=== PATIENT | male | born 1940 | race Caucasian/White ===

== ENCOUNTER 2016-08-07 08:37 | Outpatient (CLI) | payer MEDICARE, BC ==
[~2016-08-07] VITALS: Ht 179.1 cm; Wt 79.5 kg
[~2016-08-07 08:37] MED LIST: ALTACE5 MG PO; IBUPROFEN800 MG PO; JAKAFI5 MG PO; LIPITOR20 MG PO
[2016-08-07 09:48] VITALS: BP 133/75; Ht 179.1 cm; Wt 79.5 kg
--- NOTE | 2016-08-07 11:05 | NUR ---
#20 GUAGE IV STARTED PER JOHNY DARLING RN. FIRST UNIT OF PRBC'S UP TO INFUSE WITH BLOOD TUBING AND NS. ALSO, THE BLOOD IS INFUSING THROUGH A WARMER SET AT 41C. RESPIRATIONS ARE QUIET AND EASY.
--- NOTE | 2016-08-07 12:30 | NUR ---
LUNCH PROVIDED. RESPIRATIONS QUIET AND EASY. NO SIGNS OF TRANSFUSION REACTIION. RATE INCREASED TO 175ML/HR VIA PUMP.
--- NOTE | 2016-08-07 13:30 | NUR ---
FIRST UNIT OF PRBC'S HAVE INFUSED. FLUSING LINE WITH NS.
--- NOTE | 2016-08-07 13:40 | NUR ---
SECOND UNIT OF PRBC'S UP WITH NS AND NEW BLOOD TUBING. NEW BLOOD WARMING TUBING WELL.
--- NOTE | 2016-08-07 14:10 | NUR ---
NO SIGNS OF TRANSFUSION REACTION. HAS BEEN SLEEPING OFF AND ON.
--- NOTE | 2016-08-07 15:10 | NUR ---
DENIES NEEDS, RESPIRATIONS QUIET AND EASY.
--- NOTE | 2016-08-07 15:40 | NUR ---
SECOND UNIT PRBC'S COMPLETED, LINE FLUSHED WITH NS. NO SIGNS OF TRANSFUSION REACTION. DISCHARGE INSTRUCTIONS AND COPY OF TRANSFUSION REACTION SYMPTOMS GIVEN, VOICED UNDERSTANDING.
--- NOTE | 2016-08-07 15:46 | NUR ---
UNABLE TO VOID AT THIS TIME. ENCOURAGED PO FLUIDS. COFFEE GIVEN PER REQUEST.
--- NOTE | 2016-08-07 16:40 | NUR ---
VITAL SIGNS STABLE, NO SIGNS OF TRANSFUSION REACTION. IV REMOVED WITH TIP INTACT. DISCHARGE INSTRUCTIONS GIVEN AND UNDERSTOOD. DISCHARGED HOME.
== END 2016-08-07 16:40 | disposition home or self-care (01) ==
LOC: D.OPS 08:37
DX: D64.9 Anemia, unspecified (principal); D47.4 Osteomyelofibrosis

== ENCOUNTER → 2016-08-12 16:46 | Outpatient (CLI) | payer MEDICARE, BC ==
[2016-08-07 09:48] VITALS: BMI 24.8
[~2016-08-12 16:46] MED LIST changes: +ASCORBIC ACID500 MG PO; +COLCRYS0.6 MG PO; +MULTIPLE VITAMI1 TA1 PO; +ZYLOPRIM300 MG PO
== END | disposition home or self-care (01) ==
LOC: D.LABREF 16:46
DX: D47.4 Osteomyelofibrosis (principal); D50.9 Iron deficiency anemia, unspecified

== ENCOUNTER 2016-08-14 08:38 | Outpatient (CLI) | payer MEDICARE, BC ==
[~2016-08-14] VITALS: Ht 179.1 cm; Wt 81.8 kg
[~2016-08-14 08:38] MED LIST changes: -ASCORBIC ACID500 MG PO; -COLCRYS0.6 MG PO; -MULTIPLE VITAMI1 TA1 PO; -ZYLOPRIM300 MG PO
[2016-08-14] MEDS ORDERED: ZYLOPRIM300 MG PO (09:30)
[2016-08-14 09:31] VITALS: BP 125/53; Ht 179.1 cm; Wt 81.8 kg
--- NOTE | 2016-08-14 09:35 | NUR ---
0920 EXPLAINED REASON OF SIDE EFFECTS OF BLOOD TRANSFUSION MEDS AND ASSESSMENT COMPLETED. ALREADY HAD BREAKFAST. MEDS GIVEN AND IV STARTED RT ARM 20 GAUGE 1 STICK GOOD BLOOD RETURN N/S AT KVO VIA BLOOD TUBING. CALLED FOR BLOOD WARMED AND IVAC AND TUBING.
--- NOTE | 2016-08-14 10:06 | NUR ---
1000 EXPLAINED ANS S/S OF BLOOD TRANSFUSION. V/S TAKEN. BLOOD CHECKED BY 2 NURSES AND BLOOD TUBING WITH BLOOD WARMER. IV RT ARM NO REDNESS OR SWELLING. BLOOD AY 75 CC/HR AND REPORT TO JOHNY DARLING R.N.
--- NOTE | 2016-08-14 10:46 | NUR ---
1015 BLOOD INFUSING VIA ALARIS PUMP, RATE INCREASED TO 175/CC/HR, BLOOD WARMER IN USE. AT SIDE. PT. DOSING.
--- NOTE | 2016-08-14 16:11 | NUR ---
1200 1ST UNIT BLOOD HAS COMPLETED WITHOUT PROBLEMS, PT HAS BEEN UP TO BR VOIDED, LUNCH HAS BEEN ORDERED. 1215 LASIX HAS BEEN GIVEN. 2ND UNIT CHECKED AT BEDSIDE BY THIS NURSE AND ANDREI FRYE RN INITIATED BY ALARIS PUMP AT 50/CC/HR AND BLOOD WARMER. AT 50/CC/HR. 1230 DENIES PROBLEMS RATE INCREASED TO 175/CC/HR PT. UP TO BR VOIDS, LUNCH SERVED. 1245 DENIES PROBLEMS RATE INCREASED TO 200/CC/HR. 1412 BLOOD HAS COMPLETED, LINE BEING FLUSHED WITH NS. PT HAS BEEN UP TO BR SEVERAL TIMES. DENIES PROBLEMS
--- NOTE | 2016-08-14 16:15 | NUR ---
1512 DENIES PROBLEMS. IV DC'D WITH CATH INTACT. RELEASED AMB.
== END 2016-08-14 15:20 | disposition home or self-care (01) ==
LOC: D.OPS 08:38
DX: D50.9 Iron deficiency anemia, unspecified (principal); D47.4 Osteomyelofibrosis

== ENCOUNTER 2016-08-27 11:33 | Outpatient (CLI) | payer MEDICARE, BC ==
[~2016-08-27 11:33] MED LIST changes: +ZYLOPRIM300 MG PO
[2016-08-27 13:45] VITALS: BP 135/80; Ht 179.1 cm
--- NOTE | 2016-08-27 13:52 | NUR ---
1340 BLOOD VERIFIED X 2 NURSES AND STARTED AT 75 CC PER HOUR VIA PUMP WITH BLOOD WARMER IN USE. PT WITH PERIPHERAL IV TO LEFT ARM. DENIES ANY C/O. AT BEDSIDE. DIET TRAY SERVED.
--- NOTE | 2016-08-27 16:15 | NUR ---
1355 REPORT FROM MIKAYLA BROOKS RN. PT. EATING LUNCH, BLOOD INFUSING BY ALARIS PUMP AT 75/CC/HR WITH BLOOD WARMER, PT. DENIES PROBLEMS, RATE INCREASED TO 125/CC/HR. AT BEDSIDE. 1410 RATE INCREASED TO 150/CC/HR 1425 RATE INCREASED TO 200/CC/HR
--- NOTE | 2016-08-27 16:17 | NUR ---
1540 PT UP TO BR, VOIDS QS. BLOOD NEAR COMPLETION 1545 BLOOD COMPLETED IN BAG, LINE BEING FLUSHED FROM TUBING. 1550 2ND UNIT CHECKED AT BEDSIDE BY THIS NURSE AND ADRIANA PETERSON RN, INITIATED BY ALARIS PUMP AT 75/CC/HR 1605 DENIES PROBLEMS, RATE INCREASED TO 175/CC/HR. PT. DOSING
--- NOTE | 2016-08-27 18:14 | NUR ---
1635 DENIES PROBLEMS WITH TRANSFUSION, REG DIET ORDERED, RATE INCREASED TO 200/CC/HR 1700 REG DIET SERVED 1730 BLOOD NEAR COMPLETION, ATE 90% SUPPER 1745 BLOOD COMPLETED LINE BEING FLUSHED WITH NS.
--- NOTE | 2016-08-27 19:16 | NUR ---
1830 LINE HAS CLEARED DC'D WITH CATH INTACT. 1845 DENIES PROBLEMS WITH BLOOD DC INSTS REVIEWED.
== END 2016-08-27 18:47 | disposition home or self-care (01) ==
LOC: D.OPS 11:33
DX: D64.9 Anemia, unspecified (principal); D47.4 Osteomyelofibrosis

== ENCOUNTER 2016-08-28 06:26 | Outpatient (CLI) | payer MEDICARE, BC ==
[~2016-08-28] VITALS: Ht 179.1 cm; Wt 81.8 kg
[2016-08-28 07:07] VITALS: BP 140/72; Ht 179.1 cm; Wt 81.8 kg
[2016-08-28 07:37] LABS: BASOPHILS 4.4 % (0.0-2.0); EOSINOPHILS 0.6 % (0-7); HEMATOCRIT 24.7 % (42.0-54.0); HEMOGLOBIN 8.2 g/dL (13.5-17.5); IMMATURE GRANULOCYTES 8.2 % (0-5); LYMPHOCYTES 21.9 % (15-50); MCH 27.9 pg (26.0-34.0); MCHC 33.2 g/dL (31.0-37.0); MONOCYTES 16.9 % (2-11); RBC 2.94 10x6/uL (4.20-6.10); RDW 16.4 % (11.5-14.5); WBC 3.2 10x3/uL (4.8-10.8)
[2016-08-28 07:38] LABS: ANION GAP 11.5 mmol/L (8-16); CALCIUM 8.9 mg/dL (8.5-10.1); CARBON DIOXIDE 28.1 mmol/L (21.0-32.0); CREATININE - SERUM 1.1 mg/dL (0.6-1.3); PLATELET COUNT 87 10x3/uL (130-400); POTASSIUM - SERUM 4.6 mmol/L (3.5-5.1)
[2016-08-28 07:57] LABS: APTT 33.6 SECONDS (22.8-39.4); INR 1.25 (0.85-1.17); PROTIME 15.6 SECONDS (11.6-15.0)
[2016-08-28 08:07] LABS: PLATELET ESTIMATE DECREASED
[2016-08-28 08:08] LABS: ANISOCYTOSIS OCC; POLYCHROMASIA OCC
--- NOTE | 2016-08-28 08:58 | NUR ---
0845-RECEIVED PT FROM IR AWAKE AND ALERT VSS. NO DISTRESS NOTED. MID HIP AREA WITH 4X4 AND TEGADERM INTACT NO EDEMA OR DRAINAGE NOTED AT THIS TIME. PT DENIES ANY PAIN, CALL LIGHT IN REACH WILL CONTINUE TO MONITOR 0850-REG TRAY GIVEN. PT DENIES ANY NEEDS AT THIS TIME 0900-REPORT GIVEN TO LONDON VELASQUEZ
== END 2016-08-28 10:45 | disposition home or self-care (01) ==
LOC: D.OPS 06:26 → D.SP 08:00 → D.OPS 10:45
PROVIDERS: Specialist
DX: D75.81 Myelofibrosis (principal)

== ENCOUNTER 2016-09-18 08:30 | Outpatient (CLI) | payer MEDICARE, BC ==
[~2016-09-18] VITALS: Ht 179.1 cm; Wt 77.3 kg
[2016-09-18] MEDS ORDERED: COLCRYS0.6 MG PO (08:59)
[2016-09-18] MEDS ORDERED: MULTIPLE VITAMI1 TA1 PO (09:00)
[2016-09-18] MEDS ORDERED: ASCORBIC ACID500 MG PO (09:00)
[2016-09-18 09:16] VITALS: BP 147/54; Ht 179.1 cm; Wt 77.3 kg
--- NOTE | 2016-09-18 09:25 | NUR ---
FIRST UNIT OF PRBC'S STARTED AT 125ML/HR VIA PUMP WITH NS AND BLOOD TUBING, ALSO RUNNING THROUGH A BLOOD WARMER THAT IS AT 41C AND TURNED ON. HAS BEEN PRETREATED WITH BENADRYL AND TYLENOL PER ORDER.
--- NOTE | 2016-09-18 11:15 | NUR ---
FIRST UNIT OF PRBC'S COMPLETED. LINE FLUSHED WITH NS.
--- NOTE | 2016-09-18 11:29 | NUR ---
SECOND UNIT PRBC'S UP WITH NS AND NEW BLOOD TUBING AND WARMING TUBING. RESPIRATIONS WITHOUT DISTRESS. CALLED FOR LUNCH TRAY PER PT REQUEST.
--- NOTE | 2016-09-18 12:00 | NUR ---
NO SIGNS OF TRANSFUSION REACTION AFTER FIRST 50ML HAVE INFUSED. IV RATE INCREASED TO 150ML/HR VIA PUMP.
--- NOTE | 2016-09-18 13:30 | NUR ---
PRBC'S COMPLETED. LINE FLUSHED WITH NS.
--- NOTE | 2016-09-18 14:00 | NUR ---
EYES CLOSED, RESPIRATIONS QUIET AND EASY.
--- NOTE | 2016-09-18 14:30 | NUR ---
DISCHARGE INSTRUCTIONS GIVEN, VOICED UNDERSTANDING. STATES "YOU DON'T KNOW HOW MANY TIMES I HAVE READ THIS TRANSFUSION SHEET." IV REMOVED INTACT. DISCHARGED HOME VIA WC.
== END 2016-09-18 14:30 ==
LOC: D.OPS 08:30
DX: D47.4 Osteomyelofibrosis (principal); D64.9 Anemia, unspecified

== ENCOUNTER 2016-10-09 09:34 | Outpatient (CLI) | payer MEDICARE, BC ==
[~2016-10-09 09:34] MED LIST changes: +ASCORBIC ACID500 MG PO; +COLCRYS0.6 MG PO; +MULTIPLE VITAMI1 TA1 PO
[2016-10-09 13:00] VITALS: BP 119/55; Ht 179.1 cm
--- NOTE | 2016-10-09 13:04 | NUR ---
1250 1ST UNIT CHECKED AT BEDSIDE BY THIS NURSE AND JOSE PENA RN, INITIATED BY ALARIS PUMP AT 50/CC/HR, BLOOD WARMER. PT. DOSING BECAUSE OF PRE OP OF BENADRYL. AT BEDSIDE.
--- NOTE | 2016-10-09 13:05 | NUR ---
1300 HAS LEFT TO GO SHOPPING. PT. DOSING.
--- NOTE | 2016-10-09 13:08 | NUR ---
1305 NO PROBLEMS NOTED WITH INFUSION RATE INCREASED TO 100/CC/HR.
--- NOTE | 2016-10-09 18:00 | NUR ---
1320 NO PROBLEMS NOTED, RATE INCREASED TO 150/CC/HR. 1335. IV SITE PATENT. RATE INCREASED TO 200/CC/HR PT UP TO BR VOIDS 1350 BLOOD GOING WELL. PT DOSING AT INTERVALS SANDWICH DIET ORDERED 1420 DIET SERVED BLOOD NEAR COMPLETION. 1430 BLOOD HAS COMPLETED, LINE BEING FLUSHED WITH NS. 1530 NO PROBLEMS VOICED WITH BLOOD RECEIPT. IV DC'D WITH CATH INTACT. UP TO BR VOIDS 1545 DC INSTS. GIVEN. RELEASED AMB PER PT REQUEST. STATES HIS WILL DRIVE HIM HOME.
== END 2016-10-09 15:45 ==
LOC: D.OPS 09:34
DX: D47.4 Osteomyelofibrosis (principal); D50.9 Iron deficiency anemia, unspecified

== ENCOUNTER 2016-11-06 09:37 | Outpatient (CLI) | payer MEDICARE, BC ==
[~2016-11-06] VITALS: Ht 179.1 cm; Wt 80.0 kg
[2016-11-06 11:32] VITALS: BP 140/70; Ht 179.1 cm; Wt 80.0 kg
--- NOTE | 2016-11-06 12:00 | NUR ---
1120 1ST UNIT BLOOD CHECKED AT BEDSIDE BY THIS NURSE AND ANGELINE PRESTON RN INITIATED BY ALARIS PUMP WITH BLOOD WARMER AT 50/CC/HR. AT BEDSIDE. 1135 DENIES PROBLEMS WITH BLOOD RATE INCREASED TO 125/CC/HR. 1150 BLOOD GOING WELL. DROWSY FROM BENADRYL. REG DIET LEFT AT BEDSIDE. RATE INCREASED TO 175/CC/HR. STILL AT BEDSIDE.
--- NOTE | 2016-11-06 14:12 | NUR ---
1205 BLOOD RATE INCREASED TO 175/CC/HR. DENIES PROBLEMS. EATING LUNCH
--- NOTE | 2016-11-06 14:13 | NUR ---
1235 DENIES PROBLEMS BLOOD INFUSING WELL. UP TO BR, VOIDS QS. 1305 BLOOD COMPLETED, LINE BEING FLUSHED WITH NS. 1405 DENIES PROBLEMS VS WNL. IV DC'D WITH CATH INTACT. DC INSTS REVIEWED. RELEASED AMB PER PT. CHOICE.
== END 2016-11-06 14:10 | disposition home or self-care (01) ==
LOC: D.OPS 09:37
DX: D47.4 Osteomyelofibrosis (principal)

== ENCOUNTER 2017-05-02 08:07 | Outpatient (CLI) | payer MEDICARE, BC ==
[2017-05-02 11:31] VITALS: BP 153/69; BMI 24.8
--- NOTE | 2017-05-02 13:35 | NUR ---
1125 BLOOD VITALS CHARTED ON TRANSFUSION CARD IN PT CHART.
--- NOTE | 2017-05-02 16:26 | NUR ---
1530 REPORT FROM SAUNDRA SHEPPARD. BLOOD COMPLETED, NO S/S OF BLOOD REACTIONS NOTED. RESP EVEN AND NONLABORED. IV DCD CATHETER INTACT.
--- NOTE | 2017-05-02 16:27 | NUR ---
1620 V/S TAKEN ATE ICE CREAM. NO S/S OF BLOOD REACTION NOTED.
--- NOTE | 2017-05-02 16:28 | NUR ---
4419 DISCHARGED TO HOME VIA W/C.
== END 2017-05-02 16:30 | disposition home or self-care (01) ==
LOC: D.OPS 08:07
DX: D69.3 Immune thrombocytopenic purpura (principal)

== ENCOUNTER → 2017-06-10 15:49 | Outpatient (CLI) | payer MEDICARE, BC | END | disposition home or self-care (01) | LOC: D.LABREF 15:49 | DX: M62.89 Other specified disorders of muscle (principal); D64.9 Anemia, unspecified ==

== ENCOUNTER 2017-06-11 05:42 | Outpatient (CLI) | payer MEDICARE, BC ==
[2017-06-11 07:23] LABS: BASOPHILS 1.3 % (0-2); EOSINOPHILS 0.3 % (0-7); HEMATOCRIT 24.4 % (42.0-54.0); HEMOGLOBIN 8.1 g/dL (13.5-17.5); IMMATURE GRANULOCYTES 7.3 % (0-5); LYMPHOCYTES 26.5 % (15-50); MCH 27.3 pg (26.0-34.0); MCHC 33.2 g/dL (31.0-37.0); MCV 82.2 fL (80.0-100.0); MONOCYTES 13.8 % (2-11); NEUTROPHILS 50.8 % (40-80); RBC 2.97 10x6/uL (4.20-6.10); RDW 18.2 % (11.5-14.5)
[2017-06-11 07:24] LABS: PLATELET COUNT 109 10x3/uL (130-400)
[2017-06-11 07:29] VITALS: BMI 24.8
[2017-06-11 07:42] LABS: CALC OSMOLALITY 281 mosm/kg (275-300); CALCIUM 8.5 mg/dL (8.5-10.1); CARBON DIOXIDE 24.7 mmol/L (21.0-32.0); CHLORIDE - SERUM 106 mmol/L (98-107); GLUCOSE 95 mg/dL (74-106); POTASSIUM - SERUM 4.4 mmol/L (3.5-5.1); SODIUM 140 mmol/L (136-145); UREA NITROGEN 21 mg/dL (7-18); eGFR NON AFRICAN AMERICAN 77 mL/min (90-120)
[2017-06-11 07:54] LABS: INR 1.17 (0.85-1.17); PROTIME 14.8 SECONDS (11.6-15.0)
--- NOTE | 2017-06-11 10:36 | NUR ---
0900-RECD FROM IR POST BONE MARROW BIOPSY. DOES NOT WANT TO GO THRU REGISTRATION TOMORROW FOR BLOOD TRANSFUSION. ARRANGEMENTS MADE FOR HIM. 914-REGULAR BREAKFAST TRAY SERVED. 929-NO NAUSEA. DRSG DRY AND INTACT. STATES I AM LEAVING AT 1000. DR CORONADO TOLD ME TO STAY ONE OR TWO HOURS AND I FEEL FINE AND I AM ONLY STAYING 1 HOUR. 1000-IV D/C. UP TO BATHROOM AND VOIDS FREELY. 1015-DRESSED AND DISCHARGE INSTRUCTIONS REVIEWED. 1020-D/C HOME VIA WHEELCHAIR WITH FREIGHT CALLER.
== END 2017-06-11 10:20 | disposition home or self-care (01) ==
LOC: D.OPS 05:42 → D.CT 08:00 → D.OPS 08:00 → D.SP 08:00 → D.OPS 10:20
PROVIDERS: Specialist
DX: D47.4 Osteomyelofibrosis (principal); E78.5 Hyperlipidemia, unspecified; I10 Essential (primary) hypertension; Z01.812 Encounter for preprocedural laboratory examination

== ENCOUNTER 2017-06-12 06:03 | Outpatient (CLI) | payer MEDICARE, BC ==
[2017-06-12 11:18] VITALS: BP 137/83; BMI 24.8
--- NOTE | 2017-06-12 16:46 | NUR ---
9114--PT REFUSED LASIX, DR BRADLEY CALLED AND REPORT GIVEN. DR BRADLEY INSTRUCTED TO TELL PT TO GO TO THE EMERGENCY DEPARTMENT IF HE HAD ANY TROUBLE BREATHING. HGRAVES RN
== END 2017-06-12 17:30 | disposition home or self-care (01) ==
LOC: D.OPS 06:03
DX: D64.9 Anemia, unspecified (principal); D47.4 Osteomyelofibrosis

== ENCOUNTER 2017-07-01 08:28 | Outpatient (CLI) | payer MEDICARE, BC ==
[2017-07-01 11:25] VITALS: BP 136/67; Ht 179.1 cm
--- NOTE | 2017-07-01 11:27 | NUR ---
1050 BLOOD CHECKED AT BEDSIDE BY THIS NURSE AND ADRIANA PETERSON RN, INITIATED BY BLOOD WARMER AT 50/CC/HR. PT STATES NEEDS BENADRYL AND TYLENOL BEFORE, ALWAYS GETS THIS, DR. RENEE PHONED AND ORDERED SAID MEDS, GIVEN PER OCT. 1110 DENIES PROBLEMS, RATE INCREASED TO 125/CC/HR. LUNCH SERVED 1125 BLOOD CONTS WITHOUT PROBLEMS RATE INCREASED TO 175/CC/HR.
--- NOTE | 2017-07-01 11:36 | NUR ---
1125 EATING, RATE INCREASED TO 225/CC/HR.
--- NOTE | 2017-07-01 15:03 | NUR ---
1225 BLOOD CHECKED AT BEDSIDE BY MYSELF AND OSEI Gleason RN
--- NOTE | 2017-07-01 15:04 | NUR ---
IV DC WITH CATHER TIP INTACT
== END 2017-07-01 15:20 | disposition home or self-care (01) ==
LOC: D.OPS 08:28
DX: C95.90 Leukemia, unspecified not having achieved remission (principal)

== ENCOUNTER 2017-07-23 11:29 | Outpatient (CLI) | payer MEDICARE, BC ==
--- NOTE | 2017-07-23 19:48 | NUR ---
1215 LUNCH SERVED. AWAITING ON BLOOD TO BE TYPED AND CROSSED. 1400 PREMEDS GIVEN IV STARTED RIGHT ARM. BLOOD CHECKED AT BEDSIDE BY THIS NURSE AND ANGELINE PRESTON RN INITIATED BY ALARIS PUMP AT 50./CC/HR BY ALARIS PUMP AND BLOOD WARMER.AT 41 DEGREES. PT VOIDS QS. PT SKIN TEMP WARM. STATES FEELS FINE. 1420 DENIES PROBLEMS WITH BLOOD RATE INCREASED TO 150/CC/HR. 1435 PT. NAPPING. 1450 PT AROUSED FROM NAP DENIES PROBLEMS 1505. DENIES PROBLEMS, RATE INCREASED TO 200/CC/HR UP TO BR VOIDS QS 1605 PT STATES HE DOES NOT WANT THE LASIX BETWEEN THE BLOOD, NEVER HAS PROBLEMS AND REFUSES THE LASIX. 1608 1ST UNIT COMPLETED, LINE BEING FLUSHED WITH NS. REPORT TO NEHA FERGUSON.
--- NOTE | 2017-07-23 19:55 | NUR ---
183 REPORT FROM NEHA FERGUSON RN, BLOOD COMPLETED LINE BEING FLUSHED WITH NS. PT. DENIES PROBLEMS. 1849 IV DC'D WITH CATH INTACT. 1899 POST V.S. WNL DC INSTS REVIEWED RELEASED AMB PER PT. CHOICE.
== END 2017-07-23 19:00 | disposition home or self-care (01) ==
LOC: D.OPS 11:29
DX: D64.9 Anemia, unspecified (principal)

== ENCOUNTER → 2017-07-24 08:29 | Outpatient (CLI) | payer MEDICARE, BC | END | disposition home or self-care (01) | LOC: D.US 08:29 | DX: D47.4 Osteomyelofibrosis (principal) ==

== ENCOUNTER 2017-08-06 09:34 | Outpatient (CLI) | payer MEDICARE, BC ==
[2017-08-06 11:22] VITALS: BP 147/52; Ht 179.1 cm
== END 2017-08-06 16:40 | disposition home or self-care (01) ==
LOC: D.OPS 09:34 → D.LAB 09:45 → D.OPS 10:00
DX: D47.4 Osteomyelofibrosis (principal); R53.83 Other fatigue

== ENCOUNTER 2017-08-28 08:56 | Outpatient (CLI) | payer MEDICARE, BC ==
[~2017-08-28] VITALS: Ht 179.1 cm; Wt 75.0 kg
[2017-08-28 11:02] VITALS: BP 138/61; Ht 179.1 cm; Wt 75.0 kg
== END 2017-08-28 17:00 | disposition home or self-care (01) ==
LOC: D.OPS 08:56
DX: D47.4 Osteomyelofibrosis (principal)

== ENCOUNTER 2017-09-11 08:55 | Outpatient (CLI) | payer MEDICARE, BC ==
[~2017-09-11] VITALS: Ht 177.8 cm; Wt 75.0 kg
[2017-09-11 09:29] VITALS: BP 131/70; Ht 177.8 cm; Wt 75.0 kg
== END 2017-09-11 16:35 | disposition home or self-care (01) ==
LOC: D.OPS 08:55
DX: D47.4 Osteomyelofibrosis (principal)

== ENCOUNTER 2017-10-02 10:07 | Outpatient (CLI) | payer MEDICARE, BC ==
[2017-09-11 09:29] VITALS: BMI 23.7
== END 2017-10-02 18:50 | disposition home or self-care (01) ==
LOC: D.OPS 10:07
DX: D47.4 Osteomyelofibrosis (principal)

== ENCOUNTER 2017-10-16 07:50 | Outpatient (CLI) | payer MEDICARE, BC ==
[~2017-10-16] VITALS: Ht 177.8 cm; Wt 79.5 kg
[2017-10-16 08:29] VITALS: BP 141/67; Ht 177.8 cm; Wt 79.5 kg
== END 2017-10-16 15:38 | disposition home or self-care (01) ==
LOC: D.OPS 07:50
DX: D47.4 Osteomyelofibrosis (principal); D64.9 Anemia, unspecified

== ENCOUNTER → 2017-10-29 12:42 | Outpatient (CLI) | payer MEDICARE, BC ==
[2017-10-16 08:29] VITALS: BMI 25.1
[~2017-10-29 12:42] MED LIST changes: +PREDNISONE10 MG PO; +TESTOSTERON200 MG/ML IM
== END | disposition home or self-care (01) ==
LOC: D.LABREF 12:42
DX: D47.4 Osteomyelofibrosis (principal)

== ENCOUNTER 2017-10-30 08:24 | Outpatient (CLI) | payer MEDICARE, BC ==
[~2017-10-30] VITALS: Ht 177.8 cm; Wt 76.4 kg
[~2017-10-30 08:24] MED LIST changes: -PREDNISONE10 MG PO; -TESTOSTERON200 MG/ML IM
[2017-10-30] MEDS ORDERED: TESTOSTERON200 MG/ML IM (09:16)
[2017-10-30 09:22] VITALS: BP 156/74; Ht 177.8 cm; Wt 76.4 kg
== END 2017-10-30 14:45 | disposition home or self-care (01) ==
LOC: D.OPS 08:24
DX: D47.4 Osteomyelofibrosis (principal)

== ENCOUNTER 2017-11-14 09:25 | Outpatient (CLI) | payer MEDICARE, BC ==
[2017-10-30 09:22] VITALS: BMI 24.1
[~2017-11-14 09:25] MED LIST changes: +TESTOSTERON200 MG/ML IM
== END 2017-11-14 15:45 | disposition home or self-care (01) ==
LOC: D.OPS 09:25
DX: D64.9 Anemia, unspecified (principal); D47.4 Osteomyelofibrosis

== ENCOUNTER 2017-12-05 08:59 | Outpatient (CLI) | payer MEDICARE, BC ==
[~2017-12-05] VITALS: Ht 177.8 cm; Wt 77.3 kg
[2017-12-05 13:55] VITALS: BP 156/58; Ht 177.8 cm; Wt 77.3 kg
== END 2017-12-05 16:20 ==
LOC: D.OPS 08:59
DX: D47.4 Osteomyelofibrosis (principal)

== ENCOUNTER 2017-12-19 08:34 | Outpatient (CLI) | payer MEDICARE, BC ==
[~2017-12-19] VITALS: Ht 177.8 cm; Wt 77.3 kg
[2017-12-19] MEDS ORDERED: PREDNISONE10 MG PO (09:37)
[2017-12-19 09:42] VITALS: BP 127/74; Ht 177.8 cm; Wt 77.3 kg
== END 2017-12-19 15:00 | disposition home or self-care (01) ==
LOC: D.OPS 08:34
DX: D47.4 Osteomyelofibrosis (principal); D64.9 Anemia, unspecified

== ENCOUNTER 2018-01-02 08:06 | Outpatient (CLI) | payer MEDICARE, BC ==
[~2018-01-02] VITALS: Ht 177.8 cm; Wt 78.2 kg
[~2018-01-02 08:06] MED LIST changes: +PREDNISONE10 MG PO
[2018-01-02 08:49] VITALS: BP 135/62; Ht 177.8 cm; Wt 78.2 kg
== END 2018-01-02 15:50 | disposition home or self-care (01) ==
LOC: D.OPS 08:06
DX: D64.9 Anemia, unspecified (principal); D47.4 Osteomyelofibrosis

== ENCOUNTER → 2018-01-15 13:42 | Outpatient (CLI) | payer MEDICARE, BC ==
[2018-01-02 08:49] VITALS: BMI 24.7
== END | disposition home or self-care (01) ==
LOC: D.LABREF 13:42
DX: D64.9 Anemia, unspecified (principal)

== ENCOUNTER → 2018-01-16 08:24 | Outpatient (CLI) | payer MEDICARE, BC ==
[~2018-01-16] VITALS: Ht 177.8 cm; Wt 72.7 kg
[2018-01-16 08:56] VITALS: Ht 177.8 cm; Wt 72.7 kg
== END | disposition home or self-care (01) ==
LOC: D.OPS 08:00
DX: D47.4 Osteomyelofibrosis (principal); D64.9 Anemia, unspecified; Z01.812 Encounter for preprocedural laboratory examination

== ENCOUNTER 2018-01-29 08:09 | Outpatient (CLI) | payer MEDICARE, BC ==
[~2018-01-29] VITALS: Ht 177.8 cm; Wt 73.6 kg
[2018-01-29 09:58] VITALS: BP 137/66; Ht 177.8 cm; Wt 73.6 kg
== END 2018-01-29 13:55 | disposition home or self-care (01) ==
LOC: D.OPS 08:09
DX: D64.9 Anemia, unspecified (principal); D47.4 Osteomyelofibrosis; Z01.812 Encounter for preprocedural laboratory examination

== ENCOUNTER 2018-02-12 08:18 | Outpatient (CLI) | payer MEDICARE, BC ==
[~2018-02-12] VITALS: Ht 177.8 cm; Wt 66.8 kg
[2018-02-12 09:28] VITALS: BP 156/67; Ht 177.8 cm; Wt 66.8 kg
== END 2018-02-12 13:05 | disposition home or self-care (01) ==
LOC: D.OPS 08:18
DX: D47.4 Osteomyelofibrosis (principal); D50.9 Iron deficiency anemia, unspecified; Z01.812 Encounter for preprocedural laboratory examination

== ENCOUNTER 2018-02-20 07:55 | Outpatient (CLI) | payer MEDICARE, BC ==
[~2018-02-20] VITALS: Ht 177.8 cm; Wt 78.2 kg
[2018-02-20 09:05] VITALS: BP 122/86; Ht 177.8 cm; Wt 78.2 kg
== END 2018-02-20 11:20 | disposition home or self-care (01) ==
LOC: D.OPS 07:55
DX: D50.9 Iron deficiency anemia, unspecified (principal); D47.4 Osteomyelofibrosis; Z01.812 Encounter for preprocedural laboratory examination

== ENCOUNTER 2018-02-25 08:00 | Inpatient (IN) | payer MEDICARE, BC ==
[2018-02-24 12:46] LABS: HEMATOCRIT 24.7 % (42.0-54.0); MCH 26.7 pg (26.0-34.0); MCHC 32.4 g/dL (31.0-37.0); MCV 82.3 fL (80.0-100.0); RDW 18.6 % (11.5-14.5); WBC 3.9 10x3/uL (4.8-10.8)
[2018-02-24 12:57] LABS: PLATELET COUNT 35 10x3/uL (130-400)
[2018-02-24 13:21] LABS: PLATELET ESTIMATE DECREASED
[2018-02-25] VITALS (23 sets, daily range): BP systolic 51–148; BP diastolic 29–77; Ht 177.8 cm; Wt 77.3 kg
[~2018-02-25] VITALS: Ht 177.8 cm; Wt 77.3 kg
--- NOTE | ~2018-02-25 | OP ---
PATIENT NAME: DENISE RICKETTS MEDICAL RECORD: [id number] :40 LOCATION:[facility] D.[id number] ADMISSION DATE:02/25/18 SURGEON: GENA ALTAMIRANO MD DATE OF OPERATION: 02/25/2018 PREOPERATIVE DIAGNOSES: 1. Myelodysplastic syndrome. 2. Thrombocytopenia. 3. 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 POSTOPERATIVE DIAGNOSES: 1. Myelodysplastic syndrome. 2. Thrombocytopenia. 3. 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 PROCEDURE: Open splenectomy. SURGEON: Gena Altamirano MD RAND BUTTER: Micheline Alejandra APRN STUDENT RAND BUTTER: suzy Paniaguaub technologist BLOOD LOSS: 250 cc. ANESTHESIA: General. COMPLICATIONS: None. DRAINS: Times 1 (19-Cymro round Aneudy drain). The risks, possible complications, and alternatives to the procedure were explained to the patient. He elected to proceed. The discussion specifically included, but was not limited to, bleeding, requiring an emergency reoperation; infection; postoperative hemorrhage, requiring packing of the abdomen; the possibility that the procedure would not improve his condition; the possibility of hypercoagulability; the possibility of postsplenectomy sepsis; the possibility of conversion to acute myelogenous leukemia. He elected to proceed. OPERATIVE COURSE: The patient was conveyed to the operating room electively on 02/25/2018. General anesthesia was induced by the anesthesia staff. The patient was placed in a semi-lateral decubitus position with the left side up. The left upper extremity was then draped across the patient's head. The patient was appropriately padded. This elevated the left costal margin. The patient's splenic tip could be felt at the level of the anterior-superior iliac spine. The patient's abdomen and left flank were sterilely prepped and draped. A left OPERATIVE REPORT [id number] DENISE RICKETTS subcostal incision was accomplished. I dissected down through the skin and subcutaneous tissue as well as fascia and muscle. The peritoneal cavity was entered sharply. The Bookwalter retractor was placed. I then began to dissect around the spleen. Over the capsule of the spleen, there were adhesions to the diaphragm as well as to the sidewall of the abdomen. These adhesions were taken down bluntly. The stomach was retracted for protection. I took down the short gastrics with the EnSeal device. I then took down the splenocolic ligament as well as the splenorenal ligament. I took these down with the open EnSeal device. I then did some dissection around the hilum of the spleen. I ensured that the pancreas was undamaged as I stapled across the hilum of the spleen with laparoscopic Endo-LATISHA staplers utilizing vascular loads. I was then able to divide the retroperitoneal attachments to the spleen and then removed the spleen in its entirety. Some minor bleeding was controlled with the EnSeal device as well as with some suture ligatures. I then examined the small bowel. There was one area of small bowel which was an abraded and this may be due to a retractor injury. Anyhow, the bowel appeared viable, but there was a seromyotomy and this was oversewn with multiple interrupted imbricating 3-0 Vicryl sutures. I ran small bowel twice from the ligament of Treitz to the ileocecal valve. I noted no other apparent injury. I then created a tongue of omentum by dividing the omentum on the right side off of the transverse colon with EnSeal device. I then continued this dissection of the omentum off of the transverse colon. This was later placed up in the left upper quadrant. I irrigated the left upper quadrant with normal saline and with hydrogen peroxide. I examined the stomach, which was undamaged. I examined the pancreas, which was undamaged. Gerota's fascia had not been entered. I then used Yfn as a topical hemostatic agent in the left upper quadrant. I then laid down some Nu-Knit over some of the raw surfaces and the retroperitoneum. A 19-Cymro round, fully fluted drain was then brought out through the left flank and placed up under the diaphragm. The drain was sutured to the skin with a 2-0 nylon. I then placed the omental tongue up in the left upper quadrant. I then reperitonealized with a running #1 Vicryl. We then closed the incision in layers with looped #1 PDS's as well as interrupted 3-0 Vicryls for the subcutaneous tissues and a running intracuticular 3-0 Vicryl for the skin. A sterile dressing was applied. The patient was then extubated and conveyed to the postanesthesia care unit, where he was in stable condition. TRANSINT:[id number] Voice Confirmation ID: [id number] DOCUMENT ID: [id number] OPERATIVE REPORT [id number] DENISE RICKETTS, GENA GONZALES at 1718 CC: KAVON RENEE and OLIVIA BRADLEY MD [id number] DICTATION DATE: 02/25/18 172 DATA INTEGRATION DEVELOPER: 02/25/18 1803 DIS IN 02/26/18 [place] [id number] [place] [id number]
[2018-02-25 12:25] LABS: HEMATOCRIT 17.4 % (42.0-54.0); HEMOGLOBIN 5.7 g/dL (13.5-17.5); MCH 27.8 pg (26.0-34.0); MCHC 32.8 g/dL (31.0-37.0); MCV 84.9 fL (80.0-100.0); MEAN PLATELET VOLUME 10.5 fL (7.4-10.4); PLATELET COUNT 97 10x3/uL (130-400); RBC 2.05 10x6/uL (4.20-6.10); RDW 17.8 % (11.5-14.5); WBC 7.3 10x3/uL (4.8-10.8)
[2018-02-25 12:31] LABS: ANISOCYTOSIS 1+; EOSINOPHILS 1 % (0-7); HYPOCHROMASIA OCC; LYMPHOCYTES 54 % (15-50); MONOCYTES 7 % (2-11); NEUTROPHILS 14 % (40-80); PLATELET ESTIMATE DECREASED; SMUDGE CELLS 1+
[2018-02-25 15:34] LABS: HEMATOCRIT 28.9 % (42.0-54.0); HEMOGLOBIN 9.2 g/dL (13.5-17.5); MCHC 31.8 g/dL (31.0-37.0); MCV 88.1 fL (80.0-100.0); PLATELET COUNT 75 10x3/uL (130-400); RBC 3.28 10x6/uL (4.20-6.10); RDW 15.6 % (11.5-14.5)
[2018-02-25 17:53] LABS: EOSINOPHILS 5 % (0-7); LYMPHOCYTES 76 % (15-50); MONOCYTES 1 % (2-11); NEUTROPHILS 14 % (40-80); PLATELET ESTIMATE DECREASED
[2018-02-25 17:54] LABS: HEMOGLOBIN 7.4 g/dL (13.5-17.5); MCH 27.8 pg (26.0-34.0); MCHC 31.1 g/dL (31.0-37.0); MCV 89.5 fL (80.0-100.0); PLATELET COUNT 91 10x3/uL (130-400); RBC 2.66 10x6/uL (4.20-6.10); WBC 31.7 10x3/uL (4.8-10.8)
[2018-02-25 17:55] LABS: HEMATOCRIT 23.8 % (42.0-54.0)
[2018-02-26 00:33] LABS: HEMATOCRIT 17.1 % (42.0-54.0); HEMOGLOBIN 5.8 g/dL (13.5-17.5); MCH 30.4 pg (26.0-34.0); MCHC 33.9 g/dL (31.0-37.0); MCV 89.5 fL (80.0-100.0); MEAN PLATELET VOLUME 11.8 fL (7.4-10.4); PLATELET COUNT 149 10x3/uL (130-400); RBC 1.91 10x6/uL (4.20-6.10); RDW 15.4 % (11.5-14.5); WBC 54.4 10x3/uL (4.8-10.8)
[2018-02-26 00:35] LABS: ALBUMIN 2.6 g/dL (3.4-5.0); ANION GAP 27.8 mmol/L (8-16); BILIRUBIN - TOTAL 0.7 mg/dL (0.2-1.3); CALCIUM 7.8 mg/dL (8.5-10.1); CREATININE - SERUM 2.4 mg/dL (0.6-1.3); PROTEIN - SERUM 4.7 g/dL (6.4-8.2)
[2018-02-26 00:37] LABS: POTASSIUM - SERUM 5.8 mmol/L (3.5-5.1)
[2018-02-26 00:48] LABS: MAGNESIUM - SERUM 2.1 mg/dL (1.8-2.4); PHOSPHOROUS 8.2 mg/dL (2.5-4.9)
[2018-02-26 00:50] LABS: TROPONIN-I 0.819 ng/mL (0.000-0.060)
[2018-02-26 01:13] LABS: LYMPHOCYTES 73 % (15-50); MONOCYTES 7 % (2-11); NEUTROPHILS 17 % (40-80)
[2018-02-26 01:15] LABS: PLATELET ESTIMATE DECREASED; SMUDGE CELLS 3+
== END 2018-02-26 00:39 | DRG 799 ==
LOC: D.SDCHOLD 08:00 → D.ICU 13:03
PROVIDERS: Anesthesiology; Surgery
PROC: 07TP0ZZ Resection of Spleen, Open Approach (ICD-10-PCS; principal; 2018-02-25 08:00)
DX: D73.1 Hypersplenism (principal); J96.01 Acute respiratory failure with hypoxia; D75.81 Myelofibrosis; E87.0 Hyperosmolality and hypernatremia; R57.9 Shock, unspecified; D46.9 Myelodysplastic syndrome, unspecified; D69.6 Thrombocytopenia, unspecified; R00.0 Tachycardia, unspecified; R53.83 Other fatigue; I46.9 Cardiac arrest, cause unspecified; E87.5 Hyperkalemia; I95.9 Hypotension, unspecified; E16.2 Hypoglycemia, unspecified; I10 Essential (primary) hypertension; E78.5 Hyperlipidemia, unspecified